=== PATIENT | male | born 1970 | race Caucasian/White ===

== ENCOUNTER 2021-06-30 10:01 | Outpatient (CLI) | payer OTHER, SELFPAY ==
--- NOTE | 2021-06-30 10:06 | RAD_ITS ---
STUDY: X-RAY - RIGHT SHOULDER REASON FOR EXAM: Male, 50 years old. Shoulder pain. TECHNIQUE: 4 view(s) of the shoulder. COMPARISON: None. FINDINGS: Normal glenohumeral articulation. Moderate arthrosis of the AC joint. Normal acromion. Normal humeral head and visualized proximal humerus. The soft tissue structures are unremarkable. Normal visualized pulmonary apex. RAD/Shoulder min 2 Views IMPRESSION: Moderate arthrosis of the AC joint. No other abnormality present. Electronically Signed: Ciaran Henderson MD at 10:27 EST ,
[2021-06-30 12:43] LABS: Cholesterol 158 mg/dL (200); High Density Lipoprotein 44 mg/dL; Triglycerides 35 mg/dL; Very Low Density Lipoprotein 7 mg/dL (5-40)
== END 2021-06-30 23:59 | disposition home or self-care (01) ==
LOC: MTLAB 10:05
PROVIDERS: PCP Family Medicine; Referring Provider Family Medicine; Visit Provider Family Medicine
DX: Z00.00 Encounter for general adult medical examination without abnormal findings (principal); M25.511 Pain in right shoulder
CPT/HCPCS: 36415; 73030; 80061

== ENCOUNTER → 2022-07-06 | Outpatient (CLI) | payer OTHER, SELFPAY ==
[2022-07-06 12:32] LABS: Anion Gap 5 (5-15); BUN 14 mg/dL (7-18); BUN/Creat Ratio 14.5 RATIO (10-20); Calcium,Total 9.4 mg/dL (8.5-10.1); Chloride 106 mmol/L (98-107); Cholesterol 181 mg/dL (200); Creatinine, Serum 0.97 mg/dL (0.70-1.30); EST Glomerular Filtration Rate 87 mL/min (>60); Est Glom Filt Rate - Afr Amer 106 mL/min (>60); Glucose 97 mg/dL (74-106); High Density Lipoprotein 48 mg/dL; PSA,Total - Annual Screen 0.63 ng/mL (0.00-4.00); Potassium 4.4 mmol/L (3.5-5.1); Sodium Level 140 mmol/L (136-145); Triglycerides 52 mg/dL; Very Low Density Lipoprotein 10 mg/dL (5-40)
== END | disposition home or self-care (01) ==
LOC: MFPLAB 10:07
PROVIDERS: PCP Family Medicine; Visit Provider Family Medicine
DX: Z00.00 Encounter for general adult medical examination without abnormal findings (principal); Z13.1 Encounter for screening for diabetes mellitus; Z13.220 Encounter for screening for lipoid disorders; Z12.5 Encounter for screening for malignant neoplasm of prostate
CPT/HCPCS: 36415; 80048; 80061; 84153; G0103

== ENCOUNTER 2022-10-21 09:51 | Day surgery (SDC) | payer OTHER, SELFPAY ==
--- NOTE | 2022-10-21 10:20 | HP.PCM_ITS ---
[facility] - General General Date of Admission: 10/21/22 Date of Service: 10/21/22 Chief Complaint: Screening colonoscopy HPI Narrative RANDI LUU, is a 51 M who presents today for screening colonoscopy. He does not have any problems with his bowels. He does not have any nausea, vomiting or diarrhea. He is not having any chest pain or shortness of breath. He does not have any weakness. He does not have abdominal pain. Overall he is in fairly good health. He has not had a colonoscopy in the past. [facility] Medical History Alcohol use History of echocardiogram History of stress test Non-smoker Syncope Wears contact lenses Home Medications NK 08/13/22 [History Last Taken Unknown] Allergy/AdvReac Type Severity Reaction Status Date / Time No Known Allergies Allergy Verified 10/21/22 10:03 Social History (Updated 08/13/22 @ 11:24 by Linda Brito) household members: spouse current occupational status: employed Smoking Status: Never smoker ROS Review of Systems ROS Unobtainable: other Constitutional Constitutional: Denies fatigue, fever(s), poor appetite, weight gain or weight loss ENT HEENT: Denies mouth lesions Cardiovascular Cardiovascular: Denies abdominal bloating, abdominal edema or abdominal pain Respiratory/Chest Respiratory/Chest: Denies change in mental status, change in phlegm color, chest congestion or chest tightness Gastrointestinal Gastrointestinal: Denies belching, bloating, change in bowel habits, change in stool character, chewing difficulty, coffee ground emesis, constipation, cramping, diarrhea, dyspepsia, dysphagia, early satiety, excessive flatus, fecal incontinence, heartburn, hematemesis, hematochezia, hemorrhoids, loose stools, melena, nausea, odynophagia, rectal bleeding, tenesmus, vomiting or weight changes Genitourinary Genitourinary: Denies abdominal discomfort, burning urination or itching Musculoskeletal Musculoskeletal: Reports as per HPI; Denies muscle weakness or myalgias Integumentary Integumentary: Denies jaundice Neurologic Neurologic: Denies lack of coordination or weakness Psychiatric Psychiatric: Denies confusion, depression, memory loss, mood swings, paranoia or suicidal ideation Endocrine Endocrinology: Denies systems reviewed and no addt'l complaints, except as documented Hematologic/Lymphatic Hematologic/Lymphatic: Denies anemia, easy bleeding, easy bruising or lymphadenopathy Allergic/Immunologic Allergic/Immunologic: Denies systems reviewed and no addt'l complaints, except as documented Physical Exam Const alert General Appearance: cooperative Orientation / Consciousness: oriented to person HEENT hearing grossly normal bilaterally Head and Scalp: normal to inspection Face and Sinus: face symmetric Nose: external nose normal Mouth: oral and palatal mucosa normal Eyes conjunctivae normal General Eye: normal appearance of both eyes Neck full ROM General: normal visual inspection Lymph Lymphatic: no lymphadenopathy noted Chest inspection of chest normal and palpation of chest normal Chest: symmetrical chest wall rise Resp normal respiratory effort Effort and Inspection: able to speak in complete sentences Cardio regular rate GI non-distended Percussion: normal to percussion Rectal Exam: deferred Neuro Speech: speech normal Gait (Neuro): normal gait Assessment & Plan Assessment/Plan (1) Encounter for screening for malignant neoplasm of colon: PLAN: Plan He was explained alternatives, risk, benefits including not withstanding bleeding, infection, sepsis, perforation, need for emergent surgery and . He will have an ASA of 2.
[2022-10-21 10:22] VITALS: BP 154/91; PULSE 76; RESP 16; TEMP 36.6; O2SAT 98; BMI 26.4
[2022-10-21] MEDS: Lactated Ringers 1,000 ML 15 ML IV (10:22)
--- NOTE | 2022-10-21 11:00 | COLBX_PTH ---
PATIENT: RANDI LUU LOC: EN U#:[id number] AGE/SX: 51/M ROOM: RE10/21/[address]: Dr. Néstor Barth DO : 1970 BED: DIS: 10/21/2022 SPEC #: [id number] RECD: 10/21/22 12:09 STATUS: VIDAL RELuna #: [id number] ALEXIS: 10/21/22 11:[address]: Néstor Barth DEPT: SURGICAL PATHOLOGY RECD BY: Julieta Griffin ENTERED: 10/21/22 12:40 SP TYPE: COLON BX OT DR: Dr. Gideon Guthrie MD Tissues: A - COLON BIOPSY B - Sigmoid colon biopsy Procedures: Surgery Specimen Level IV HEADER OPERATION: Colonoscopy - open access (MAC), biopsy PRE-OP DIAGNOSIS: Screening TISSUE SUBMITTED: A - Hepatic flexure polyp biopsy, B - Sigmoid colon biopsy MICROSCOPIC DIAGNOSIS A. Colonic polyp at hepatic flexure, biopsy: Tubular adenoma. B. Sigmoid colon, biopsy: Hypoplastic polyp. AM:patricia 10/22/2022 MICROSCOPIC DESCRIPTION Slides are reviewed. GROSS DESCRIPTION A - Received in fixative is one container labeled with the patient's name and designated hepatic flexure polyp biopsy. The specimen consists of one irregular fragment of light wallace soft tissue that measures 0.3 x 0.2 x 0.1 cm. The specimen is totally submitted in one cassette. B - Received in fixative is one container labeled with the patient's name and designated sigmoid colon biopsy. The specimen consists of one irregular fragment of light wallace soft tissue that measures 0.5 x 0.4 x 0.2 cm. The specimen is totally submitted in one cassette. / SJ:patricia 10/21/2022 TC:[facility]: [id number] x2
--- NOTE | 2022-10-21 11:28 | OP.COLON_ITS ---
Patient Name: Drew Joyner Procedure Date: 10/21/2022 10:54 AM Date of : 1970 Age: 51 Procedure: Colonoscopy Indications: Screening for colorectal malignant neoplasm Providers: Néstor Barth DO Medicines: Monitored Anesthesia Care Patient Profile: This is a 51 year old male. Refer to note in patient chart for documentation of history and physical. Last Colonoscopy: none. The patient's first colonoscopy is today. Complications: No immediate complications. Procedure: Pre-Anesthesia Assessment: - Prior to the procedure, a History and Physical was performed, and patient medications and allergies were reviewed. The patient is competent. The risks and benefits of the procedure and the sedation options and risks were discussed with the patient. All questions were answered and informed consent was obtained. Patient identification and proposed procedure were verified by the physician in the pre-procedure area. Mental Status Examination: alert and oriented. Airway Examination: normal oropharyngeal airway and neck mobility. Respiratory Examination: clear to auscultation. CV Examination: normal. Prophylactic Antibiotics: The patient does not require prophylactic antibiotics. Prior Anticoagulants: The patient has taken no previous anticoagulant or antiplatelet agents. ASA Grade Assessment: II - A patient with mild systemic disease. After reviewing the risks and benefits, the patient was deemed in satisfactory condition to undergo the procedure. The anesthesia plan was to use monitored anesthesia care (MAC). Immediately prior to administration of medications, the patient was re-assessed for adequacy to receive sedatives. The heart rate, respiratory rate, oxygen saturations, blood pressure, adequacy of pulmonary ventilation, and response to care were monitored throughout the procedure. The physical status of the patient was re-assessed after the procedure. After I obtained informed consent, the scope was passed under direct vision. Throughout the procedure, the patient's blood pressure, pulse, and oxygen saturations were monitored continuously. The pediatric colonoscope was introduced through the anus and advanced to the cecum, identified by appendiceal orifice and ileocecal valve. The colonoscopy was performed without difficulty. The patient tolerated the procedure well. The quality of the bowel preparation was adequate. Scope In: 11:07:01 AM Scope Withdrawal Time 0 hours 12 minutes 11 seconds Scope Out: 11:22:58 AM Total Procedure Duration Time 0 hours 15 minutes 57 seconds Findings: The perianal and digital rectal examinations were normal. A 5 mm polyp was found in the hepatic flexure. The polyp was sessile. The polyp was removed with a jumbo cold forceps. Resection and retrieval were complete. Verification of patient identification for the specimen was done. Estimated blood loss was minimal. A 9 mm polyp was found in the sigmoid colon. The polyp was sessile. The polyp was removed with a hot snare. Resection and retrieval were complete. Verification of patient identification for the specimen was done. Estimated blood loss was minimal. Multiple small-mouthed diverticula were found in the recto-sigmoid colon, sigmoid colon and hepatic flexure. Impression: - One 5 mm polyp at the hepatic flexure, removed with a jumbo cold forceps. Resected and retrieved. - One 9 mm polyp in the sigmoid colon, removed with a hot snare. Resected and retrieved. - Diverticulosis in the recto-sigmoid colon, in the sigmoid colon and at the hepatic flexure. Recommendation: - Discharge patient to home. - Resume previous diet. - Continue present medications. - Await pathology results. - Repeat colonoscopy in 5 years for surveillance. Procedure Code(s): --- Professional --- 23928, Colonoscopy, flexible; with removal of tumor(s), polyp(s), or other lesion(s) by snare technique 97678, 59, Colonoscopy, flexible; with biopsy, single or multiple CPT copyright 2017 [employer]. All rights reserved. The codes documented in this report are preliminary and upon director oncology review may be revised to meet current compliance requirements. Néstor Barth DO 10/21/2022 11:28:09 AM This report has been signed electronically. Number of Addenda: 0 Note Initiated On: 10/21/2022 10:54 AM
--- NOTE | 2022-10-21 11:29 | OP.CCLET_ITS ---
10/21/2022 René Guthrie [address] [place] [address] Re : Colonoscopy procedure for Drew Joyner Dear Dr. Guthrie This procedure was performed on September. My impressions and recommendations are as follows: Impressions : - One 5 mm polyp at the hepatic flexure, removed with a jumbo cold forceps. Resected and retrieved. - One 9 mm polyp in the sigmoid colon, removed with a hot snare. Resected and retrieved. - Diverticulosis in the recto-sigmoid colon, in the sigmoid colon and at the hepatic flexure. Recommendations : - Discharge patient to home. - Resume previous diet. - Continue present medications. - Await pathology results. - Repeat colonoscopy in 5 years for surveillance. My findings are described in the full procedure note, which is enclosed. If I can be of further assistance, please feel free to contact me at . Sincerely, Néstor Barth DO 10/21/2022 11:28:09 AM This report has been signed electronically.
[2022-10-21 11:30] VITALS: BP 154/91; BP 97/58; PULSE 59; RESP 14; TEMP 36.6; O2SAT 99
[2022-10-21 11:35] VITALS: BP 154/91; BP 98/63; PULSE 58; RESP 14; O2SAT 99
[2022-10-21 11:40] VITALS: BP 110/70; BP 154/91; PULSE 59; RESP 14; O2SAT 99
[2022-10-21 11:41] VITALS: BP 110/70; BP 154/91; PULSE 63; RESP 14; TEMP 36.4; O2SAT 99
[2022-10-21 12:05] VITALS: BP 154/91
== END 2022-10-21 12:21 | disposition home or self-care (01) ==
LOC: EN 09:55 → AC 09:56
PROVIDERS: PCP Family Medicine; Referring Provider Internal Medicine Gastroenterology; Visit Provider Internal Medicine Gastroenterology
PROC: 0DJD8ZZ Inspection of Lower Intestinal Tract, Via Natural or Artificial Opening Endoscopic (ICD-10-PCS; CPT 45378; principal; 2022-10-21 10:55)
DX: Z12.11 Encounter for screening for malignant neoplasm of colon (principal); K57.30 Diverticulosis of large intestine without perforation or abscess without bleeding; D12.3 Benign neoplasm of transverse colon
CPT/HCPCS: 45385; 45380; 88305; J7120; J2405

== ENCOUNTER → 2022-11-25 | Outpatient (CLI) | payer OTHER, SELFPAY ==
--- NOTE | 2022-11-25 14:12 | RAD_ITS ---
STUDY: X-RAY - UNILATERAL RIBS ( RIGHT ) REASON FOR EXAM: Male, 51 years old. Right rib pain following injury. TECHNIQUE: 4 view(s) of the ribs. COMPARISON: None. FINDINGS: Normal visualized ribs without a demonstrated fracture. The visualized lung is clear and expanded. RAD/Ribs Unil 2V No CXR IMPRESSION: Normal x-ray examination of the ribs. Electronically Signed: Terell Ellison MD at 15:15 EDT ,
== END | disposition home or self-care (01) ==
LOC: MTRAD 14:05
PROVIDERS: PCP Family Medicine; Visit Provider Physician Assistant Surgical
DX: S20.211A Contusion of right front wall of thorax, initial encounter (principal)
CPT/HCPCS: 71100

== ENCOUNTER → 2023-07-11 | Outpatient (CLI) | payer OTHER, SELFPAY ==
[2023-07-11 12:53] LABS: Anion Gap 3 (5-15); BUN 11 mg/dL (7-18); BUN/Creat Ratio 11.1 RATIO (10-20); Calcium,Total 9.2 mg/dL (8.5-10.1); Chloride 109 mmol/L (98-107); Cholesterol 162 mg/dL (200); Creatinine, Serum 0.99 mg/dL (0.70-1.30); EST Glomerular Filtration Rate 85 mL/min (>60); Est Glom Filt Rate - Afr Amer 103 mL/min (>60); Glucose 95 mg/dL (74-106); High Density Lipoprotein 46 mg/dL; PSA,Total - Annual Screen 0.63 ng/mL (0.00-4.00); Potassium 4.6 mmol/L (3.5-5.1); Sodium Level 139 mmol/L (136-145); Triglycerides 49 mg/dL; Very Low Density Lipoprotein 10 mg/dL (5-40)
== END | disposition home or self-care (01) ==
LOC: MFPLAB 10:48
PROVIDERS: PCP Family Medicine; Visit Provider Family Medicine
DX: Z12.5 Encounter for screening for malignant neoplasm of prostate (principal); Z13.1 Encounter for screening for diabetes mellitus; Z13.220 Encounter for screening for lipoid disorders
CPT/HCPCS: 36415; 80048; 80061; 84153; G0103